=== PATIENT | male | born 1990 | race Caucasian/White ===

== ENCOUNTER 2018-01-22 15:25 | Emergency (ER) | payer SELFPAY ==
[2018-01-22 15:40] VITALS: BP 151/89
--- NOTE | 2018-01-22 15:43 | UC ---
Headache HPI - HPI Summary HPI Summary: 28 yo male presents with right sided temporal/TMJ pain, burning to right side of neck, and intermittent chest tightness for the last 3-4 weeks. He tells me that about 1.5months ago he had a red "parallel" rash to the right side of his neck that burned and was there for about 5 days and then went away. About 3-4 weeks ago he developed right temporal/TMJ pain that is worse after eating and he noticed the burning sensation on the right side of his neck was still present. He does note that he has a broken tooth on the upper right portion of his mouth and wonders if this is causing his pain. Also over the last 3-4 weeks he will have intermittent random episodes of chest "tightness" without pain or SOB. He admits to a significant increase in personal stress recently - dealing with family issues and a recent . Has been bitten by a tick in the past - but says it wasn't on him more than a few hours. He has not taken anything OTC for his symptoms. He tells me that he does smoke marijuana occasionally and that this helps his symptoms. Denies fever, chills, sore throat, SOB, CARLOS, chest pain, abdominal pain, n/v/d/c, dysuria, back pain, dizziness, vision changes, numbness, tingling, or abnormal/new nodules/bumps. - History Of Current Complaint Chief Complaint: UCGeneralIllness Stated Complaint: RIGHT SIDE PAIN HEAD,NECK,FATIGUE Time Seen by Provider: 01/22/18 15:42 Hx Obtained From: Patient Onset/Duration: Gradual Onset Initially Headache Was: Mild Currently Pain Is: Moderate Pain Intensity: 6 Pain Scale Used: 0-10 Numeric - Allergies/Home Medications Allergies/Adverse Reactions: Allergies Allergy/AdvReac Type Severity Reaction Status Date / Time No Known Allergies Allergy Verified 01/22/18 15:40 Home Medications: Home Medications Lactobacillus Acidophilus [Freeze Dried Acidophilus] 1 cap PO 01/22/18 [History] Magnesium [Magnesium Elemental] 30 mg PO 01/22/18 [History] Vitamin B Complex [Super B-50 Complex] 01/22/18 [History] PMH/Surg Hx/FS Hx/Imm Hx - Additional Past Medical History Additional PMH: None - Surgical History Surgical History: Yes Surgery Procedure, Year, and Place: TORE BICEP TENDON REPAIR-09/26/11 - Family History Known Family History: Positive: Cardiac Disease - Social History Occupation: Employed Full-time Lives: With Family Alcohol Use: Rare Substance Use Type: Marijuana Substance Use Comment - Amount & Last Used: daily Smoking Status (MU): Former Smoker Review of Systems Constitutional: Negative Skin: Rash Eyes: Negative ENT: Negative Respiratory: Negative Cardiovascular: Other - Chest tightness Gastrointestinal: Negative Genitourinary: Negative Motor: Negative Neurovascular: Negative Musculoskeletal: Negative Neurological: Headache Psychological: Negative All Other Systems Reviewed And Are Negative: Yes Physical Exam - Summary Physical Exam Summary: GENERAL: NAD. WDWN. No pain distress. SKIN: No rashes, sores, ulcers, masses, lesions. No clubbing or cyanosis. HEENT: Head: AT/NC. Mild TTP over right temporal artery with percussion ( compared to left) Eyes: PERRLA. EOM intact. Conjunctiva clear without inflammation or discharge. Ears: Hearing grossly normal. TMs intact, no bulging, erythema, or edema. Nose: Nasal mucosa pink and moist. NTTP maxillary and frontal sinus. Throat: Posterior oropharynx without exudates, erythema, or tonsillar enlargement. Uvula midline. DENTAL: Tooth fracture at tooth #3 with tenderness to palpation. No abscess, bleeding, or cellulitis. NECK: Supple. Nontender. No lymphadenopathy. CHEST: CTAB. No r/r/w. No accessory muscle use. Breathing comfortably and in no distress. CV: RRR. Without m/r/g. Pulses intact. Brisk cap refill. ABDOMEN: Soft. NTTP. No distention or guarding. No organomegaly. No CVA tenderness. Bowel sounds present MSK: Opening and closing jaw without pain. No TMJ clunking, clicking, or pain on palpation. FROM in B/L UEs and LEs with symmetric strength. NEURO: A&Ox3. 3 word recall, remote, recent memory, ability to follow 2-step directions, and attention intact. CN II XII grossly intact. [id number] are intact. Gait with normal base. Romberg: maintains balance, no pronator drift. Sensory: intact throughout. Normal speech. No facial drooping. PSYCH: Age appropriate behavior. Triage Information Reviewed: Yes Vital Signs: Initial Vital Signs Temp 99.2 F 01/22/18 15:35 Pulse 82 01/22/18 15:35 Resp 18 01/22/18 15:35 BP 151/89 01/22/18 15:35 Pulse Ox 100 01/22/18 15:35 Headache Course/Dx - Course Course Of Treatment: FSBG 83. EKG NSR [address] changes as read by Dr. Webb. Will draw for CBC, CMP, CRP, EBV, ESR, Lyme, and TSH. Strongly recommended that he f/u with his PCP. I will also try him with lidocaine viscous for his tooth to see if this helps his right sided head/jaw pain. Pt was agreeable to this plan. - Differential Dx/Diagnosis Provider Diagnoses: Right TMJ pain. Chest tightness Discharge - Sign-Out/Discharge Documenting (check all that apply): Discharge/Admit/Transfer - Discharge Plan Condition: Stable Disposition: HOME Prescriptions: Amoxicillin PO (*) [Amoxicillin 500 MG CAP*] 500 mg PO Q12H #14 cap Lidocaine 2% VISCOUS* [Xylocaine 2% Viscous*] 15 ml SWISH SPIT Q4H PRN #300 ml PRN Reason: Pain Referrals: Patt Tilley PA [Primary Care Provider] - Additional Instructions: If you develop a fever, shortness of breath, chest pain, new or worsening symptoms - please call your PCP or go to the ED. Your blood pressure was high at todays visit. Please see your primary provider within 4 weeks for recheck and re-evaluation. - Billing Disposition and Condition Condition: STABLE Disposition: Home
[2018-01-22 18:52] LABS: ABS Basophils 0.1 10^3/ul (0-0.2); ABS Eosinophils 0.1 10^3/ul (0-0.6); ABS Lymphocytes 1.3 10^3/ul (1.0-4.8); ABS Monocytes 0.5 10^3/ul (0-0.8); ABS Neutrophils 6.1 10^3/ul (1.5-7.7); ABS Nucleated RBC 0 10^3/ul; Eosinophil % 0.8 % (0-6); Hematocrit 45 % (42-52); Hemoglobin 15.2 g/dl (14.0-18.0); Lymphocyte % 16.7 % (25-47); Mean Corpuscular HGB Conc 33 g/dl (31-36); Mean Corpuscular Hemoglobin 29 pg (27-31); Mean Corpuscular Volume 87 fL (80-94); Mean Platelet Volume 10.1 um3 (7.4-10.4); Nucleated Red Blood Cells % 0; Platelet Count 192 10^3/ul (150-450); Red Blood Count 5.24 10^6/ul (4.0-5.4); Red Cell Distribution Width 13 % (10.5-15); White Blood Count 8.1 10^3/ul (3.5-10.8)
[2018-01-22 19:12] LABS: EGFR Non-African American 111.1 (>60)
--- NOTE | 2018-01-25 16:48 | UC ---
- Progress Note Progress Note: 01/25/2018 EBV IgG positive, EBV IGM negative, EBV AG:negative. Pt probably had Mononucleosis in the past. Pending Lyme serology. Cindy King PA-C Discharge - Sign-Out/Discharge Documenting (check all that apply): Discharge/Admit/Transfer - Discharge Plan Condition: Stable Disposition: HOME Prescriptions: Amoxicillin PO (*) [Amoxicillin 500 MG CAP*] 500 mg PO Q12H #14 cap Lidocaine 2% VISCOUS* [Xylocaine 2% Viscous*] 15 ml SWISH SPIT Q4H PRN #300 ml PRN Reason: Pain Referrals: Patt Tilley PA [Primary Care Provider] - Additional Instructions: If you develop a fever, shortness of breath, chest pain, new or worsening symptoms - please call your PCP or go to the ED. Your blood pressure was high at todays visit. Please see your primary provider within 4 weeks for recheck and re-evaluation. - Billing Disposition and Condition Condition: STABLE Disposition: Home
== END 2018-01-22 16:46 | disposition home or self-care (01) ==
LOC: UCEAST 15:25
DX: M26.621 Arthralgia of right temporomandibular joint (principal); R07.89 Other chest pain; Z82.49 Family history of ischemic heart disease and other diseases of the circulatory system; Z87.891 Personal history of nicotine dependence
CPT/HCPCS: 36415; 80053; 84443; 85025; 85652; 86140; 86618; 86664; 86665; 93005; 99212; G0463